=== PATIENT | male | born 1970 | race Caucasian/White ===

== ENCOUNTER 2018-01-17 11:19 | Emergency (ER) | payer OTHER ==
[~2018-01-17] VITALS: Ht 180.3 cm; Wt 100.7 kg
[~2018-01-17 11:19] MED LIST: COL100 PO; NOR10T PO; NORCO1 TA2 PO
[2018-01-17 11:27] VITALS: Ht 180.3 cm; Wt 100.7 kg
[2018-01-17 13:06] VITALS: BP 114/76
== END 2018-01-17 13:06 | disposition home or self-care (01) ==
LOC: ED 11:19
DX: S00.83XA Contusion of other part of head, initial encounter (principal); S50.312A Abrasion of left elbow, initial encounter; S80.212A Abrasion, left knee, initial encounter; Z98.890 Other specified postprocedural states; Y08.89XA Assault by other specified means, initial encounter; Y93.89 Activity, other specified; Y92.89 Other specified places as the place of occurrence of the external cause; Y99.8 Other external cause status

== ENCOUNTER 2018-05-30 01:00 | Emergency (ER) | payer OTHER ==
[~2018-05-30] VITALS: Ht 180.3 cm; Wt 96.6 kg
[2018-05-30 01:31] VITALS: Ht 180.3 cm; Wt 96.6 kg
[2018-05-30 04:08] VITALS: BP 133/94
== END 2018-05-30 04:08 | disposition home or self-care (01) ==
LOC: ED 01:00
DX: S61.412A Laceration without foreign body of left hand, initial encounter (principal); S01.81XA Laceration without foreign body of other part of head, initial encounter; S09.8XXA Other specified injuries of head, initial encounter; F10.129 Alcohol abuse with intoxication, unspecified; W18.02XA Striking against glass with subsequent fall, initial encounter; Y93.89 Activity, other specified; Y92.89 Other specified places as the place of occurrence of the external cause; Y99.8 Other external cause status
CPT/HCPCS: 90715; J2001

== ENCOUNTER → 2018-08-29 | Outpatient (CLI) | payer OTHER ==
[2018-08-29 13:19] LABS: BASOPHIL % 0.4 % (0-2); PLATELET COUNT 184 x10^3mcL (130-400); RED CELL DISTRIBUTION WIDTH 12.4 % (11.5-14.5)
[2018-08-29 13:53] LABS: ALBUMIN 3.7 g/dL (3.4-5.0); ALKALINE PHOSPHATASE 109 U/L (46-116); ALT/SGPT 53 U/L (16-63); AST/SGOT 19 U/L (15-37); BILIRUBIN TOTAL 0.84 mg/dL (0.20-1.00); CALCIUM 9.5 mg/dL (8.5-10.1); CARBON DIOXIDE 29.1 mmol/L (21-32); CHLORIDE SERUM 103 mmol/L (98-107); CHOLESTEROL 203 mg/dL (<200); CHOLESTEROL/HDL RATIO 3.8; CREATININE SERUM 1.2 mg/dL (0.7-1.3); GFR1 > 60 mL/min; GLUCOSE SERUM 203 mg/dL (74-106); HDL CHOLESTEROL 53 mg/dL (40-60); POTASSIUM SERUM 4.7 mmol/L (3.5-5.1); SODIUM SERUM 142 mmol/L (136-145); TOTAL PROTEIN, SERUM 7.4 g/dL (6.4-8.2); TRIGLYCERIDES 240 mg/dL (<150)
== END | disposition home or self-care (01) ==
LOC: LB 13:00
DX: Z00.00 Encounter for general adult medical examination without abnormal findings (principal)

== ENCOUNTER → 2019-10-30 | Outpatient (CLI) | payer OTHER ==
[2019-10-30 11:36] LABS: ALBUMIN 3.8 g/dL (3.4-5.0); ALKALINE PHOSPHATASE 110 U/L (46-116); ALT/SGPT 34 U/L (16-63); AST/SGOT 16 U/L (15-37); BILIRUBIN TOTAL 0.6 mg/dL (0.20-1.00); CALCIUM 8.5 mg/dL (8.5-10.1); CARBON DIOXIDE 29.2 mmol/L (21-32); CHLORIDE SERUM 100 mmol/L (98-107); CREATININE SERUM 1.1 mg/dL (0.7-1.3); FREE T4 1.07 ng/dL (0.76-1.46); GFR1 > 60 mL/min; GLUCOSE SERUM 267 mg/dL (74-106); POTASSIUM SERUM 4.2 mmol/L (3.5-5.1); SODIUM SERUM 136 mmol/L (136-145); TOTAL PROTEIN, SERUM 7.2 g/dL (6.4-8.2)
== END | disposition home or self-care (01) ==
LOC: RD 10:42
DX: M54.2 Cervicalgia (principal); G89.29 Other chronic pain; R63.4 Abnormal weight loss; E11.9 Type 2 diabetes mellitus without complications
CPT/HCPCS: 84439

== ENCOUNTER → 2019-12-11 | Outpatient (CLI) | payer OTHER | END | disposition home or self-care (01) | LOC: LB 10:33 | DX: E11.9 Type 2 diabetes mellitus without complications (principal) ==

== ENCOUNTER → 2020-04-15 | Outpatient (CLI) | payer OTHER ==
[2020-04-15 12:27] LABS: PLATELET COUNT 214 x10^3mcL (152-348)
[2020-04-15 12:29] LABS: BASOPHIL % 2.5 % (0.2-1.5)
[2020-04-15 12:37] LABS: ALBUMIN 3.9 g/dL (3.4-5.0); ALKALINE PHOSPHATASE 114 U/L (46-116); ALT/SGPT 43 U/L (16-63); AST/SGOT 14 U/L (15-37); BILIRUBIN TOTAL 0.51 mg/dL (0.20-1.00); CALCIUM 9.3 mg/dL (8.5-10.1); CARBON DIOXIDE 29.7 mmol/L (21-32); CHLORIDE SERUM 95 mmol/L (98-107); CHOLESTEROL 198 mg/dL (<200); CREATININE SERUM 1.3 mg/dL (0.7-1.3); GFR1 > 60 mL/min; GLUCOSE SERUM 445 mg/dL (74-106); HDL CHOLESTEROL 50 mg/dL (40-60); POTASSIUM SERUM 4.8 mmol/L (3.5-5.1); SODIUM SERUM 132 mmol/L (136-145); TOTAL PROTEIN, SERUM 7.5 g/dL (6.4-8.2)
[2020-04-15 12:38] LABS: TRIGLYCERIDES 485 mg/dL (<150)
[2020-04-16 10:05] LABS: microalbumin:creatinine ratio < 4 (0-29)
== END | disposition home or self-care (01) ==
LOC: LB 11:53
DX: E11.65 Type 2 diabetes mellitus with hyperglycemia (principal); R07.9 Chest pain, unspecified; Z12.11 Encounter for screening for malignant neoplasm of colon